=== PATIENT | female | born 1940 | race American Indian/Alaskan Native ===

== ENCOUNTER 2017-04-02 13:17 | Inpatient (IN) | payer MEDICARE ==
--- NOTE | 2017-04-02 14:42 | Emergency Department Report ---
- General Chief complaint: Weakness Stated complaint: WEAKNESS Time Seen by Provider: 04/02/17 14:42 Source: EMS Mode of arrival: Stretcher Limitations: Physical Limitation - History of Present Illness Initial comments: 77 YO FEMAL;E C/O OF WEAKNESS, NECK AND HEAD PAIN , TOOTH ACHE . HER PAIN IS NOT ACUTE BUT DAUGHTER SAYS SHE HAD INCREASED NECK PAIN AST NIGHT. RECENTLY SHE WAS ADMITTED HER FOR PNEUMONIA. MD Complaint: lack of energy -: week(s) (MANY ) Location: neck Severity scale (0 -10): 3 Quality: aching Consistency: constant Improves with: none Worsens with: none Associated Symptoms: other (TOOTHACHE) - Related Data Home Medications Medication Instructions Recorded Confirmed Last Taken Amlodipine Besylate [Norvasc] 10 mg PO QDAY 03/19/17 03/19/17 Unknown Citalopram [Celexa] 20 mg PO QAM 03/19/17 03/19/[address] [Depakote Dr] 500 mg PO BID MDD YOBANI 03/19/17 03/19/17 Unknown Gabapentin [Neurontin] 1 - 2 cap PO QHS PRN 03/19/17 03/19/17 Unknown Memantine [Namenda] 10 mg PO BID 03/19/17 03/19/17 Unknown Metformin HCl [Glucophage] 500 mg PO BID 03/19/17 03/19/17 Unknown Metoprolol Tartrate 50 mg PO BID 03/19/17 03/19/17 Unknown Quetiapine Fumarate [Seroquel] 400 mg PO QHS 03/19/17 03/19/17 Unknown glipiZIDE XL [Glucotrol Xl] 10 mg PO QDAY 03/19/17 03/19/17 Unknown traMADol [Ultram 50 MG tab] 50 mg PO BID 03/19/17 03/19/17 Unknown Previous Rx's Medication Instructions Recorded Last Taken Type Levofloxacin [Levaquin TAB] 250 mg PO DAILY #5 tablet 03/22/17 Unknown Rx Allergies Allergy/AdvReac Type Severity Reaction Status Date / Time Penicillins Allergy Unknown Unknown Verified 03/19/17 11:14 Sulfa (Sulfonamide Allergy Unknown Verified 03/19/17 11:15 Antibiotics) ED Review of Systems ROS: Stated complaint: WEAKNESS Other details as noted in HPI Constitutional: denies: chills, fever Eyes: denies: eye pain, eye discharge, vision change ENT: dental pain. denies: ear pain, throat pain Respiratory: denies: cough, shortness of breath, wheezing Cardiovascular: denies: chest pain, palpitations Endocrine: no symptoms reported Gastrointestinal: denies: abdominal pain, nausea, diarrhea Genitourinary: denies: urgency, dysuria, discharge Musculoskeletal: arthralgia (C-SPINE). denies: back pain, joint swelling Skin: denies: rash, lesions Neurological: denies: headache, weakness, paresthesias Psychiatric: denies: anxiety, depression Hematological/Lymphatic: denies: easy bleeding, easy bruising ED Past Medical Hx - Past Medical History Previous Medical History?: Yes Hx Hypertension: Yes Hx Diabetes: Yes Hx Arthritis: Yes Hx Psychiatric Treatment: Yes Hx Dementia: Yes Additional medical history: anxiety. manic depression,PNEUMONIA - Surgical History Additional Surgical History: hysterectomy - Social History Smoking Status: Unknown if ever smoked - Medications Home Medications: Home Medications Medication Instructions Recorded Confirmed Last Taken Type Amlodipine Besylate [Norvasc] 10 mg PO QDAY 03/19/17 03/19/17 Unknown History Citalopram [Celexa] 20 mg PO QAM 03/19/17 03/19/[address] [Antonio Crespo] 500 mg PO BID MDD YOBANI 03/19/17 03/19/17 Unknown History Gabapentin [Neurontin] 1 - 2 cap PO QHS PRN 03/19/17 03/19/17 Unknown History Memantine [Namenda] 10 mg PO BID 03/19/17 03/19/17 Unknown History Metformin HCl [Glucophage] 500 mg PO BID 03/19/17 03/19/17 Unknown History Metoprolol Tartrate 50 mg PO BID 03/19/17 03/19/17 Unknown History Quetiapine Fumarate [Seroquel] 400 mg PO QHS 03/19/17 03/19/17 Unknown History glipiZIDE XL [Glucotrol Xl] 10 mg PO QDAY 03/19/17 03/19/17 Unknown History traMADol [Ultram 50 MG tab] 50 mg PO BID 03/19/17 03/19/17 Unknown History Levofloxacin [Levaquin TAB] 250 mg PO DAILY #5 tablet 03/22/17 Unknown Rx ED Physical Exam - General Limitations: Physical Limitation General appearance: alert, in no apparent distress - Head Head exam: Present: atraumatic, normocephalic - Eye Eye exam: Present: normal appearance, EOMI. Absent: scleral icterus - ENT ENT exam: Present: mucous membranes moist - Neck Neck exam: Present: normal inspection, tenderness (MIDLINE C-SPINE ) - Respiratory Respiratory exam: Present: normal lung sounds bilaterally. Absent: respiratory distress - Cardiovascular Cardiovascular Exam: Present: regular rate, normal rhythm. Absent: systolic murmur, diastolic murmur, rubs, gallop - GI/Abdominal GI/Abdominal exam: Present: soft, normal bowel sounds - Rectal Rectal exam: Present: deferred - Extremities Exam Extremities exam: Present: normal inspection - Back Exam Back exam: Present: normal inspection, full ROM - Neurological Exam Neurological exam: Present: alert, oriented X3, CN II-XII intact - Psychiatric Psychiatric exam: Present: normal affect, normal mood - Skin Skin exam: Present: warm, dry, intact, normal color. Absent: rash ED Course Vital Signs 04/02/17 04/02/17 04/02/17 13:51 15:43 16:00 Temperature 97.6 F Pulse Rate 132 H 129 H 131 H Respiratory 25 H 20 24 Rate Blood Pressure 149/66 163/76 163/76 Blood Pressure 149/66 [Right] O2 Sat by Pulse 96 82 L Oximetry 04/02/17 04/02/17 04/02/17 17:00 18:00 19:43 Temperature Pulse Rate 128 H 123 H Respiratory 22 24 Rate Blood Pressure 170/75 173/71 176/85 Blood Pressure [Right] O2 Sat by Pulse 90 Oximetry - Reevaluation(s) Reevaluation #1: 04/02/17 18:48 PT CONTINUES TO BE TACHYCARDIA. WAITING FOR REPORT OF CHEST CT AND VQ SCAN 04/02/17 19:52 DR NEVILLE WILL CHEST FOT THE CT AND V/Q SCAN RESULTS AND TREAT ACCORDINGLY ED Medical Decision Making - Lab Data Result diagrams: 04/02/17 14:34 04/02/17 14:34 - EKG Data -: EKG Interpreted by Me EKG shows normal: axis Rate: tachycardia - Radiology Data Radiology results: report reviewed, image reviewed (CXR:BIBASILAR ATELECTASIS) Critical care attestation.: If time is entered above; I have spent that time in minutes in the direct care of this critically ill patient, excluding procedure time. ED Disposition Clinical Impression: Weakness, Tachycardia, Neck pain Disposition: DC-01 TO HOME OR SELFCARE Is pt being admited?: Yes Does the pt Need Aspirin: No Condition: Stable Referrals: PRIMARY CARE, [Primary Care Provider] - 3-5 Days Time of Disposition: 19:50 (CASE REVIEWED WITH DR NEVILLE AND HE WILL ADMIT THE PT TO THE HOSPITAL)
[2017-04-02 15:23] LABS: Basophils % (Auto) 0.3 % (0.0-1.8); Hemoglobin 12.4 gm/dl (10.1-14.3); Mean Corpuscular HGB Conc 31 % (30-34); Mean Corpuscular Hemoglobin 29 pg (28-32); Mean Corpuscular Volume 94 fl (79-97); Platelet Count 273 K/mm3 (140-440); Red Blood Count 4.24 M/mm3 (3.65-5.03); Red Cell Distribution Width 13.5 % (13.2-15.2); White Blood Count 14.1 K/mm3 (4.5-11.0)
[2017-04-02 15:38] LABS: Alanine Aminotransferase 28 units/L (7-56); Albumin 3.9 g/dL (3.9-5); Albumin/Globulin Ratio 1.1 %; Alkaline Phosphatase 98 units/L (35-129); Anion Gap 23 mmol/L; BUN/Creatinine Ratio 19; Blood Urea Nitrogen 19 mg/dL (7-17); Calcium 9.3 mg/dL (8.4-10.2); Carbon Dioxide 24 mmol/L (22-30); Chloride 95.5 mmol/L (98-107); Glucose 260 mg/dL (65-100); Lactate Dehydrogenase 218 units/L (91-180); Potassium 4.1 mmol/L (3.6-5.0); Sodium 138 mmol/L (137-145); Total Protein 7.4 g/dL (6.3-8.2)
[2017-04-02 15:40] LABS: Creatine Kinase MB 19.5 ng/mL (0.0-4.0)
--- NOTE | 2017-04-02 15:40 | XRay Report ---
AP CHEST :04/02/17 13:17:00 CLINICAL: Tachycardia. COMPARISON:03/19/17 FINDINGS: Normal heart and pulmonary vasculature. Mild bibasal subsegmental atelectasis. No airspace disease or pleural effusion. The bones and soft tissues are normal. IMPRESSION: Mild bibasal subsegmental atelectasis. No CHF or pneumonia.
[2017-04-02 15:41] LABS: Creatine Kinase 519 units/L (30-135)
[2017-04-02] MEDS ORDERED: NACL 0.9% 500 ML 500 ML IV ONE (16:24)
[2017-04-02 16:34] LABS: Bacteria,Urine 1+ /HPF (Negative); Bilirubin,Urine NEG (Negative); Blood,Urine NEG (Negative); Ketones,Urine NEG (Negative); Leukocyte Esterase,Urine NEG (Negative); Mucus,Urine FEW /HPF; Nitrite,Urine NEG (Negative); Protein,Urine <15 mg/dL mg/dL (Negative); Urobilinogen,Urine < 2.0 mg/dL (<2.0)
[2017-04-02] MEDS ORDERED: NACL ONE (16:48)
--- NOTE | 2017-04-02 18:16 | Cat Scan Report ---
FINAL REPORT EXAM: CT HEAD/BRAIN WO CON HISTORY: weakness TECHNIQUE: Standard unenhanced CT of the head at 5.0 millimeter axial increments. PRIORS: None. FINDINGS: The ventricular system is normal in size and configuration. There is moderate cerebral and cerebellar atrophy. Bilateral basal ganglia calcification is likely age related. There is no evidence for mass lesion, mass effect, midline shift, acute intracranial hemorrhage, or acute ischemia/ infarction. No evidence for acute skull fracture is seen. No abnormality in the overlying scalp soft tissues is seen. Visualized paranasal sinuses are clear. IMPRESSION: No acute intracranial process noted.
[2017-04-02 18:21] LABS: Creatine Kinase MB 16.6 ng/mL (0.0-4.0)
[2017-04-02 18:22] LABS: Creatine Kinase 509 units/L (30-135)
--- NOTE | 2017-04-02 18:23 | Cat Scan Report ---
FINAL REPORT EXAM: CT CERVICAL SPINE WO CON HISTORY: ,neck pain . TECHNIQUE: Standard CT cervical spine obtained at 2.5 millimeter axial increments. Coronal and sagittal reconstruction was also performed. PRIORS: None. FINDINGS: The vertebral bodies are intact. There is no evidence for acute fracture. There is no evidence for paravertebral soft tissue swelling. Alignment is maintained. There is moderate to severe disc space narrowing at C5 through C7 with large spurs anteriorly and posteriorly. There are also spurs anteriorly and posteriorly at C3-C4. 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 IMPRESSION: No acute abnormality of the cervical spine. A moderate severe degenerative disc changes from C5 through C7. Congenital fusion of C2 and C3 is present.
--- NOTE | 2017-04-02 19:50 | Nuclear Medicine Report ---
FINAL REPORT EXAM: NM LUNG SCAN PERF/VENT HISTORY: elevated d-dimer TECHNIQUE: Profusion imaging of the lungs was performed in multiple planar projections. Ventilation imaging was performed in the posterior projection for initial, equilibrium, and washout phases. Correlation with a chest x-ray dated 04/02/2017 was made. DOSE: 15 millicuries Xe-133 gas; 5.0 millicuries 99m Tc MAA given IV. PRIORS: None. FINDINGS: The tracer distribution on perfusion imaging is homogeneous throughout. No unmatched segmental or subsegmental perfusion defects are identified to suggest the presence of pulmonary embolism. The ventilation study is also homogeneous and within normal limits. There is normal equilibrium and washout with no evidence for air trapping. IMPRESSION: Normal V/Q scan
--- NOTE | 2017-04-02 20:30 | History and Physical Report ---
History of Present Illness Chief complaint: She is weak and confused, she's been falling, and I dont know what to do History of present illness: 77 YO Female with HTN, DM, OA, Dementia, Anxiety, Depression presents to ED for evaluation. Pt is confused and unable to provide history. Pt daughter is as bedside and provides history. Pt daughter states that her mother has been living with her since March 13, 2017. Since that time she has experienced progressive confusion and weakness that has resulted in multiple falls. No reports of fever, chills, CP, Palpitations, NVD, Syncope, head trauma. Pt has decreased interaction with family, as well as decreased oral intake over the past three weeks. Pt seen and evaluated in ED and found to be confused but is able to protect her airway. No external signs of trauma, or point tenderness to head and neck region on exam. CT of Head, Neck, and Chest conducted in ED did not reveal any acute fracture or pathology. D dimer was elevated, but VQ scan did not reveal PE. Pt daughter denies complaints of head/neck pain. Pt found to have evidence of sepsis and pneumonia. Past History Past Medical History: arthritis, diabetes, hypertension, other (Dementia, depression) Past Surgical History: hysterectomy Social history: , lives with family. denies: smoking, alcohol abuse, prescription drug abuse Family history: diabetes, hypertension Medications and Allergies Allergies Allergy/AdvReac Type Severity Reaction Status Date / Time Penicillins Allergy Unknown Unknown Verified 03/19/17 11:14 Sulfa (Sulfonamide Allergy Unknown Verified 03/19/17 11:15 Antibiotics) Home Medications Medication Instructions Recorded Confirmed Last Taken Type Amlodipine Besylate [Norvasc] 10 mg PO QDAY 03/19/17 03/19/17 Unknown History Citalopram [Celexa] 20 mg PO QAM 03/19/17 03/19/[address] [Antonio Crespo] 500 mg PO BID MDD YOBANI 03/19/17 03/19/17 Unknown History Gabapentin [Neurontin] 1 - 2 cap PO QHS PRN 03/19/17 03/19/17 Unknown History Memantine [Namenda] 10 mg PO BID 03/19/17 03/19/17 Unknown History Metformin HCl [Glucophage] 500 mg PO BID 03/19/17 03/19/17 Unknown History Metoprolol Tartrate 50 mg PO BID 03/19/17 03/19/17 Unknown History Quetiapine Fumarate [Seroquel] 400 mg PO QHS 03/19/17 03/19/17 Unknown History glipiZIDE XL [Glucotrol Xl] 10 mg PO QDAY 03/19/17 03/19/17 Unknown History traMADol [Ultram 50 MG tab] 50 mg PO BID 03/19/17 03/19/17 Unknown History Levofloxacin [Levaquin TAB] 250 mg PO DAILY #5 tablet 03/22/17 Unknown Rx Review of Systems ROS unobtainable: due to mental status Exam - Constitutional Vitals: Temp Pulse Resp BP Pulse Ox 97.6 F 123 H 24 176/85 90 04/02/17 13:51 04/02/17 19:43 04/02/17 19:43 04/02/17 19:43 04/02/17 17:00 General appearance: Present: mild distress - EENT Eyes: Present: PERRL ENT: hearing intact, clear oral mucosa - Neck Neck: Present: supple, normal ROM - Respiratory Respiratory effort: normal Respiratory: bilateral: diminished - Cardiovascular Rhythm: other (tachycardia) Heart Sounds: Present: S1 & S2. Absent: rub, click - Extremities Extremities: pulses symmetrical, No edema Peripheral Pulses: abnormal (capillary refill: 4 seconds) - Abdominal General gastrointestinal: Present: soft, non-tender, non-distended, normal bowel sounds Female genitourinary: Present: normal - Integumentary Integumentary: Present: clear, dry, decreased turgor - Musculoskeletal Musculoskeletal: generalized weakness - Psychiatric Psychiatric: no intact judgment & insight, no memory intact - Neurologic Neurologic: CNII-XII intact, no gait normal Results - Labs CBC & Chem 7: 04/02/17 14:34 04/02/17 14:34 Labs: Abnormal lab results 04/02/17 04/02/17 04/02/17 Range/Units 14:34 14:34 15:14 WBC 14.1 H (4.5-11.0) K/mm3 Lymph % (Auto) 9.2 L (13.4-35.0) % Levy # 1.0 H (0.0-0.8) K/mm3 Seg Neutrophils % 83.5 H (40.0-70.0) % Seg Neutrophils # 11.8 H (1.8-7.7) K/mm3 D-Dimer (0-234) ng/mlDDU Chloride 95.5 L (98-107) mmol/L BUN 19 H (7-17) mg/dL Glucose 260 H (65-100) mg/dL Lactate Dehydrogenase 218 H (91-180) units/L Total Creatine Kinase 519 H (30-135) units/L CK-MB (CK-2) 19.5 H (0.0-4.0) ng/mL NT-Pro-B Natriuret Pep 1438 H (0-900) pg/mL 04/02/17 04/02/17 Range/Units 15:14 17:49 WBC (4.5-11.0) K/mm3 Lymph % (Auto) (13.4-35.0) % Levy # (0.0-0.8) K/mm3 Seg Neutrophils % (40.0-70.0) % Seg Neutrophils # (1.8-7.7) K/mm3 D-Dimer 1589.41 H (0-234) ng/mlDDU Chloride (98-107) mmol/L BUN (7-17) mg/dL Glucose (65-100) mg/dL Lactate Dehydrogenase (91-180) units/L Total Creatine Kinase 509 H (30-135) units/L CK-MB (CK-2) 16.6 H (0.0-4.0) ng/mL NT-Pro-B Natriuret Pep (0-900) pg/mL Assessment and Plan - Patient Problems (1) Sepsis Current Visit: Yes Status: Acute Plan to address problem: Sepsis Protocol: IV abx, IVF, serial lactic acid level, monitor uop q shift, blood cultures, repeat cbc, urinalysis, (2) Pneumonia Current Visit: Yes Status: Acute Qualifiers: Laterality: bilateral Lung location: lower lobe of lung Plan to address problem: IV abx, IVF, blood cultures, supplemental oxygen, aspiration precautions, incentive spirometry, NIPPV as clinically indicated, (3) Encephalopathy Current Visit: Yes Status: Acute Plan to address problem: Toxic Encephalopathy: Secondary to pneumonia/sepsis. Treat pneumonia, neuro checks, fall precautions, (4) Diabetes Current Visit: Yes Status: Acute Plan to address problem: ADA diet, diet with assistance, aspiration precautions, diet when alert and awake only, (5) HTN (hypertension) Current Visit: Yes Status: Acute Plan to address problem: monitor bp q shift, (6) DVT prophylaxis Current Visit: Yes Status: Acute
[2017-04-02] MEDS ORDERED: PROVENTIL IH PRN (20:35)
[2017-04-02] MEDS ORDERED: ZOFRAN IV PRN (20:35)
[2017-04-02] MEDS ORDERED: NACL 0.9% 1000 ML IV ONE (20:38)
[2017-04-02 20:43] LABS: INR 1.04 (0.87-1.13)
[2017-04-02 20:44] LABS: Partial Thromboplastin Time 33.7 Sec. (24.2-36.6)
--- NOTE | 2017-04-02 20:44 | Cat Scan Report ---
FINAL REPORT EXAM: CT CHEST WO CON HISTORY: Elevated D-dimer TECHNIQUE: Standard unenhanced CT of the chest at 2.5 mm axial increments. Coronal and sagittal reconstruction was also obtained. PRIORS: None. FINDINGS: Bibasilar linear atelectasis or fibrosis is present. Otherwise, the lung parenchyma are expanded and clear with no evidence for parenchymal nodules, infiltrates, vascular congestion, pleural effusion, or pneumothorax. Heavily calcified 1 cm granuloma in the left apex is seen. Several calcified granulomatous lymph node in the mediastinum and left hilum are noted. There is no evidence for mediastinal, hilar, or axillary adenopathy. The esophagus is collapsed. The trachea is midline. Cardiovascular structures are within normal limits. Cardiac size and aorta are normal. Images through the lung bases include upper abdomen which show no abnormality of the visualized abdominal viscera. Bony structures show no focal abnormalities. No evidence for bony fracture is seen. IMPRESSION: 1. bibasilar atelectasis versus fibrosis. 2. Otherwise, no acute abnormality identified in the chest. 3. granulomatous changes in the left upper lobe and mediastinum.
[2017-04-02] MEDS ORDERED: NON-FORMULARY (Quetiapine Fumarate [Seroquel] 400 MG) PO SCH (22:00)
[2017-04-02] MEDS ORDERED: PEPCID IV SCH (22:00)
[2017-04-02] MEDS: NAMENDA PO SCH (22:11)
[2017-04-02] MEDS: LOPRESSOR PO SCH (22:11)
[2017-04-02] MEDS: ULTRAM PO SCH (22:12)
[2017-04-03] MEDS ORDERED: D50W (25GM) Syringe IV PRN (06:46)
[2017-04-03] MEDS ORDERED: D50W (25GM) Vial IV PRN (06:49)
[2017-04-03] MEDS: NOVOLOG SUB-Q SCH ×4 (07:45→23:21)
[2017-04-03] MEDS: TYLENOL PO PRN (09:35)
[2017-04-03] MEDS: celeXA PO SCH (09:36)
[2017-04-03] MEDS: NAMENDA PO SCH ×2 (09:36→23:19)
[2017-04-03] MEDS: LOPRESSOR PO SCH ×2 (09:40→23:26)
[2017-04-03] MEDS: NORVASC PO SCH (09:40)
[2017-04-03] MEDS: ULTRAM PO SCH ×2 (09:43→23:20)
[2017-04-03] MEDS ORDERED: LEVAQUIN 750MG/150ML 750 MG/150 ML BAG IV SCH (10:00)
[2017-04-03] MEDS: PEPCID PO SCH ×2 (11:49→23:19)
--- NOTE | 2017-04-03 13:40 | Progress Note ---
Assessment and Plan Assessment and plan: 77-year-old -Polish female with past medical history significant for hypertension, dementia, depression, diabetes brought to emergency department doctor for complaints of frequent falls, confusion Sepsis secondary to bilateral pneumonia - Patient is being managed according to the sepsis protocol Dementia with confusion - Supportive care -Treat the underlying cause Debility - Supportive care Frequent falls - PT consulted Hypertension - Continue home medications Diabetes mellitus type 2 - Sliding scale insulin, Accu-Chek DVT prophylaxis - Lovenox Disposition - Continue inpatient care Patient placement, plan discussed as a case investigator. History Interval history: Patient was seen and evaluated this morning, patient is sleepy, no new complaints Hospitalist Physical - Physical exam Narrative exam: Not in cardiopulmonary distress. The patient appeared well nourished and normally developed. Vital signs as documented. Head exam is unremarkable. No scleral icterus . Neck is without jugular venous distension, thyromegaly, or carotid bruits. Lungs are clear to auscultation. Cardiac exam reveals regular rate and Rhythm. First and second heart sounds normal. No murmurs, rubs or gallops. Abdominal exam reveals normal bowel sounds, no masses, no organomegaly and no aortic enlargement. Extremities are nonedematous and both femoral and pedal pulses are normal. 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 - Constitutional Vitals: Temp Pulse Resp BP Pulse Ox 99 F 86 20 131/91 100 04/03/17 08:15 04/03/17 09:40 04/03/17 08:15 04/03/17 09:40 04/03/17 11:01 General appearance: Present: mild distress Results - Labs CBC & Chem 7: 04/02/17 14:34 04/02/17 14:34 Labs: Laboratory Last Values WBC 14.1 K/mm3 (4.5-11.0) H 04/02/17 14:34 RBC 4.24 M/mm3 (3.65-5.03) 04/02/17 14:34 Hgb 12.4 gm/dl (10.1-14.3) 04/02/17 14:34 Hct 40.0 % (30.3-42.9) 04/02/17 14:34 MCV 94 fl (79-97) 04/02/17 14:34 MCH 29 pg (28-32) 04/02/17 14:34 MCHC 31 % (30-34) 04/02/17 14:34 RDW 13.5 % (13.2-15.2) 04/02/17 14:34 Plt Count 273 K/mm3 (140-440) 04/02/17 14:34 Lymph % (Auto) 9.2 % (13.4-35.0) L 04/02/17 14:34 [place] % (Auto) 7.0 % (0.0-7.3) 04/02/17 14:34 Eos % (Auto) 0.0 % (0.0-4.3) 04/02/17 14:34 Baso % (Auto) 0.3 % (0.0-1.8) 04/02/17 14:34 Lymph # 1.3 K/mm3 (1.2-5.4) 04/02/17 14:34 [place] # 1.0 K/mm3 (0.0-0.8) H 04/02/17 14:34 Eos # 0.0 K/mm3 (0.0-0.4) 04/02/17 14:34 Baso # 0.0 K/mm3 (0.0-0.1) 04/02/17 14:34 Seg Neutrophils % 83.5 % (40.0-70.0) H 04/02/17 14:34 Seg Neutrophils # 11.8 K/mm3 (1.8-7.7) H 04/02/17 14:34 PT 14.1 Sec. (12.2-14.9) 04/02/17 19:58 INR 1.04 (0.87-1.13) 04/02/17 19:58 APTT 33.7 Sec. (24.2-36.6) 04/02/17 19:58 D-Dimer 1589.41 ng/mlDDU (0-234) H 04/02/17 15:14 Sodium 138 mmol/L (137-145) 04/02/17 14:34 Potassium 4.1 mmol/L (3.6-5.0) 04/02/17 14:34 Chloride 95.5 mmol/L (98-107) L 04/02/17 14:34 Carbon Dioxide 24 mmol/L (22-30) 04/02/17 14:34 Anion Gap 23 mmol/L 04/02/17 14:34 BUN 19 mg/dL (7-17) H 04/02/17 14:34 Creatinine 1.0 mg/dL (0.7-1.2) 04/02/17 14:34 Estimated GFR > 60 ml/min 04/02/17 14:34 BUN/Creatinine Ratio 19 % 04/02/17 14:34 Glucose 260 mg/dL (65-100) H 04/02/17 14:34 POC Glucose 151 (70-105) H 04/03/17 08:13 Lactic Acid 1.50 mmol/L (0.7-2.0) 04/03/17 02:57 Calcium 9.3 mg/dL (8.4-10.2) 04/02/17 14:34 Total Bilirubin 0.40 mg/dL (0.1-1.2) 04/02/17 14:34 AST 22 units/L (5-40) 04/02/17 14:34 ALT 28 units/L (7-56) 04/02/17 14:34 Alkaline Phosphatase 98 units/L (35-129) 04/02/17 14:34 Lactate Dehydrogenase 218 units/L (91-180) H 04/02/17 14:34 Total Creatine Kinase 509 units/L (30-135) H 04/02/17 17:49 CK-MB (CK-2) 16.6 ng/mL (0.0-4.0) H 04/02/17 17:49 CK-MB (CK-2) Rel Index 3.2 (0-4) 04/02/17 17:49 Troponin T < 0.010 ng/mL (0.00-0.029) 04/02/17 17:49 NT-Pro-B Natriuret Pep 1438 pg/mL (0-900) H 04/02/17 15:14 Total Protein 7.4 g/dL (6.3-8.2) 04/02/17 14:34 Albumin 3.9 g/dL (3.9-5) 04/02/17 14:34 Albumin/Globulin Ratio 1.1 % 04/02/17 14:34 Urine Color Yellow (Yellow) 04/02/17 16:20 Urine Turbidity Clear (Clear) 04/02/17 16:20 Urine pH 6.0 (5.0-7.0) 04/02/17 16:20 Ur Specific [place] 1.020 (1.003-1.030) 04/02/17 16:20 Urine Protein <15 mg/dl mg/dL (Negative) 04/02/17 16:20 Urine Glucose (UA) >=500 mg/dL (Negative) 04/02/17 16:20 Urine Ketones Neg mg/dL (Negative) 04/02/17 16:20 Urine Blood Neg (Negative) 04/02/17 16:20 Urine Nitrite Neg (Negative) 04/02/17 16:20 Urine Bilirubin Neg (Negative) 04/02/17 16:20 Urine Urobilinogen < 2.0 mg/dL (<2.0) 04/02/17 16:20 Ur Leukocyte Esterase Neg (Negative) 04/02/17 16:20 Urine WBC (Auto) 1.0 /HPF (0.0-6.0) 04/02/17 16:20 Urine RBC (Auto) 1.0 /HPF (0.0-6.0) 04/02/17 16:20 Urine Bacteria (Auto) 1+ /HPF (Negative) 04/02/17 16:20 Urine Mucus Few /HPF 04/02/17 16:20
[2017-04-03] MEDS: LOVENOX SUB-Q SCH (23:33)
[2017-04-04 04:56] LABS: Basophils % (Auto) 0.7 % (0.0-1.8); Eosinophils % (Auto) 0.1 % (0.0-4.3); Hematocrit 30.7 % (30.3-42.9); Hemoglobin 10.1 gm/dl (10.1-14.3); Mean Corpuscular HGB Conc 33 % (30-34); Mean Corpuscular Hemoglobin 31 pg (28-32); Mean Corpuscular Volume 93 fl (79-97); Platelet Count 209 K/mm3 (140-440); Red Blood Count 3.28 M/mm3 (3.65-5.03); Red Cell Distribution Width 13.3 % (13.2-15.2); White Blood Count 8.7 K/mm3 (4.5-11.0)
[2017-04-04 05:05] LABS: Calcium 8.7 mg/dL (8.4-10.2); Chloride 104.8 mmol/L (98-107); Potassium 4.1 mmol/L (3.6-5.0)
[2017-04-04] MEDS: NOVOLOG SUB-Q SCH ×4 (10:40→22:33)
[2017-04-04] MEDS: ULTRAM PO SCH ×2 (10:41→21:59)
[2017-04-04] MEDS: PEPCID PO SCH ×2 (10:41→22:00)
[2017-04-04] MEDS: celeXA PO SCH (10:42)
[2017-04-04] MEDS: NAMENDA PO SCH ×2 (10:42→22:01)
[2017-04-04] MEDS: LEVAQUIN PO SCH (10:42)
[2017-04-04] MEDS: NORVASC PO SCH (10:43)
[2017-04-04] MEDS: LOPRESSOR PO SCH ×2 (10:43→22:00)
--- NOTE | 2017-04-04 13:19 | Progress Note ---
Assessment and Plan Assessment and plan: 77-year-old -Martiniquais female with past medical history significant for hypertension, dementia, depression, diabetes brought to emergency department doctor for complaints of frequent falls, confusion Sepsis secondary to bilateral pneumonia - Patient is being managed according to the sepsis protocol Dementia with confusion - Supportive care -Treat the underlying cause Debility - Supportive care Frequent falls - PT consulted Hypertension - Continue home medications Diabetes mellitus type 2 - Sliding scale insulin, Accu-Chek DVT prophylaxis - Lovenox Disposition - Continue inpatient care Patient needed subacute rehabilitation placement. History Interval history: Patient was seen and evaluated this morning, no new complaints Hospitalist Physical - Physical exam Narrative exam: Not in cardiopulmonary distress. The patient appeared well nourished and normally developed. Vital signs as documented. Head exam is unremarkable. No scleral icterus . Neck is without jugular venous distension, thyromegaly, or carotid bruits. Lungs are clear to auscultation. Cardiac exam reveals regular rate and Rhythm. First and second heart sounds normal. No murmurs, rubs or gallops. Abdominal exam reveals normal bowel sounds, no masses, no organomegaly and no aortic enlargement. Extremities are nonedematous and both femoral and pedal pulses are normal. 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 - Constitutional Vitals: Temp Pulse Resp BP Pulse Ox 98.6 F 100 H 20 123/62 100 04/04/17 07:33 04/04/17 10:43 04/04/17 07:33 04/04/17 10:43 04/04/17 07:33 General appearance: Present: mild distress Results - Labs CBC & Chem 7: 04/04/17 04:12 04/04/17 04:12 Labs: Laboratory Last Values WBC 8.7 K/mm3 (4.5-11.0) 04/04/17 04:12 RBC 3.28 M/mm3 (3.65-5.03) L 04/04/17 04:12 Hgb 10.1 gm/dl (10.1-14.3) 04/04/17 04:12 Hct 30.7 % (30.3-42.9) D 04/04/17 04:12 MCV 93 fl (79-97) 04/04/17 04:12 MCH 31 pg (28-32) 04/04/17 04:12 MCHC 33 % (30-34) 04/04/17 04:12 RDW 13.3 % (13.2-15.2) 04/04/17 04:12 Plt Count 209 K/mm3 (140-440) 04/04/17 04:12 Lymph % (Auto) 16.1 % (13.4-35.0) 04/04/17 04:12 [place] % (Auto) 6.8 % (0.0-7.3) 04/04/17 04:12 Eos % (Auto) 0.1 % (0.0-4.3) 04/04/17 04:12 Baso % (Auto) 0.7 % (0.0-1.8) 04/04/17 04:12 Lymph # 1.4 K/mm3 (1.2-5.4) 04/04/17 04:12 Hart # 0.6 K/mm3 (0.0-0.8) 04/04/17 04:12 Eos # 0.0 K/mm3 (0.0-0.4) 04/04/17 04:12 Baso # 0.1 K/mm3 (0.0-0.1) 04/04/17 04:12 Seg Neutrophils % 76.3 % (40.0-70.0) H 04/04/17 04:12 Seg Neutrophils # 6.6 K/mm3 (1.8-7.7) 04/04/17 04:12 PT 14.1 Sec. (12.2-14.9) 04/02/17 19:58 INR 1.04 (0.87-1.13) 04/02/17 19:58 APTT 33.7 Sec. (24.2-36.6) 04/02/17 19:58 D-Dimer 1589.41 ng/mlDDU (0-234) H 04/02/17 15:14 Sodium 141 mmol/L (137-145) 04/04/17 04:12 Potassium 4.1 mmol/L (3.6-5.0) 04/04/17 04:12 Chloride 104.8 mmol/L (98-107) 04/04/17 04:12 Carbon Dioxide 23 mmol/L (22-30) 04/04/17 04:12 Anion Gap 17 mmol/L 04/04/17 04:12 BUN 26 mg/dL (7-17) H 11/25/17 04:12 Creatinine 1.2 mg/dL (0.7-1.2) 04/04/17 04:12 Estimated GFR 53 ml/min 04/04/17 04:12 BUN/Creatinine Ratio 22 % 04/04/17 04:12 Glucose 181 mg/dL (65-100) H 04/04/17 04:12 POC Glucose 211 (70-105) H 04/04/17 11:42 Lactic Acid 1.50 mmol/L (0.7-2.0) 04/03/17 02:57 Calcium 8.7 mg/dL (8.4-10.2) 04/04/17 04:12 Total Bilirubin 0.40 mg/dL (0.1-1.2) 04/02/17 14:34 AST 22 units/L (5-40) 04/02/17 14:34 ALT 28 units/L (7-56) 04/02/17 14:34 Alkaline Phosphatase 98 units/L (35-129) 04/02/17 14:34 Lactate Dehydrogenase 218 units/L (91-180) H 04/02/17 14:34 Total Creatine Kinase 509 units/L (30-135) H 04/02/17 17:49 CK-MB (CK-2) 16.6 ng/mL (0.0-4.0) H 04/02/17 17:49 CK-MB (CK-2) Rel Index 3.2 (0-4) 04/02/17 17:49 Troponin T < 0.010 ng/mL (0.00-0.029) 04/02/17 17:49 NT-Pro-B Natriuret Pep 1438 pg/mL (0-900) H 04/02/17 15:14 Total Protein 7.4 g/dL (6.3-8.2) 04/02/17 14:34 Albumin 3.9 g/dL (3.9-5) 04/02/17 14:34 Albumin/Globulin Ratio 1.1 % 04/02/17 14:34 Urine Color Yellow (Yellow) 04/02/17 16:20 Urine Turbidity Clear (Clear) 04/02/17 16:20 Urine pH 6.0 (5.0-7.0) 04/02/17 16:20 Ur Specific [place] 1.020 (1.003-1.030) 04/02/17 16:20 Urine Protein <15 mg/dl mg/dL (Negative) 04/02/17 16:20 Urine Glucose (UA) >=500 mg/dL (Negative) 04/02/17 16:20 Urine Ketones Neg mg/dL (Negative) 04/02/17 16:20 Urine Blood Neg (Negative) 04/02/17 16:20 Urine Nitrite Neg (Negative) 04/02/17 16:20 Urine Bilirubin Neg (Negative) 04/02/17 16:20 Urine Urobilinogen < 2.0 mg/dL (<2.0) 04/02/17 16:20 Ur Leukocyte Esterase Neg (Negative) 04/02/17 16:20 Urine WBC (Auto) 1.0 /HPF (0.0-6.0) 04/02/17 16:20 Urine RBC (Auto) 1.0 /HPF (0.0-6.0) 04/02/17 16:20 Urine Bacteria (Auto) 1+ /HPF (Negative) 04/02/17 16:20 Urine Mucus Few /HPF 04/02/17 16:20
[2017-04-04] MEDS: LOVENOX SUB-Q SCH (22:00)
[2017-04-05] MEDS: NOVOLOG SUB-Q SCH ×4 (07:30→22:09)
[2017-04-05] MEDS: celeXA PO SCH (10:00)
[2017-04-05] MEDS: LOPRESSOR PO SCH ×2 (10:01→22:07)
[2017-04-05] MEDS: LEVAQUIN PO SCH (10:01)
[2017-04-05] MEDS: ULTRAM PO SCH ×2 (10:01→22:07)
[2017-04-05] MEDS: PEPCID PO SCH ×2 (10:01→22:07)
[2017-04-05] MEDS: NORVASC PO SCH (10:01)
[2017-04-05] MEDS: NAMENDA PO SCH ×2 (10:02→22:08)
--- NOTE | 2017-04-05 13:54 | Progress Note ---
Assessment and Plan Assessment and plan: 77-year-old -Malaysian female with past medical history significant for hypertension, dementia, depression, diabetes brought to emergency department doctor for complaints of frequent falls, confusion Sepsis secondary to bilateral pneumonia - Patient is being managed according to the sepsis protocol Dementia with confusion - Supportive care -Treat the underlying cause Debility - Supportive care Frequent falls - PT consulted Hypertension - Continue home medications Diabetes mellitus type 2 - Sliding scale insulin, Accu-Chek DVT prophylaxis - Lovenox Disposition - Continue inpatient care Patient needed subacute rehabilitation placement. History Interval history: Patient was seen and evaluated this morning, no new complaints, sitting on the chair. Hospitalist Physical - Physical exam Narrative exam: Not in cardiopulmonary distress. The patient appeared well nourished and normally developed. Vital signs as documented. Head exam is unremarkable. No scleral icterus . Neck is without jugular venous distension, thyromegaly, or carotid bruits. Lungs are clear to auscultation. Cardiac exam reveals regular rate and Rhythm. First and second heart sounds normal. No murmurs, rubs or gallops. Abdominal exam reveals normal bowel sounds, no masses, no organomegaly and no aortic enlargement. Extremities are nonedematous and both femoral and pedal pulses are normal. 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 - Constitutional Vitals: Temp Pulse Resp BP Pulse Ox 99.2 F 83 18 156/68 99 04/05/17 07:26 04/05/17 10:01 04/05/17 07:26 04/05/17 10:01 04/05/17 07:26 General appearance: Present: mild distress Results - Labs CBC & Chem 7: 04/04/17 04:12 04/04/17 04:12 Labs: Laboratory Last Values WBC 8.7 K/mm3 (4.5-11.0) 04/04/17 04:12 RBC 3.28 M/mm3 (3.65-5.03) L 04/04/17 04:12 Hgb 10.1 gm/dl (10.1-14.3) 04/04/17 04:12 Hct 30.7 % (30.3-42.9) D 04/04/17 04:12 MCV 93 fl (79-97) 04/04/17 04:12 MCH 31 pg (28-32) 04/04/17 04:12 MCHC 33 % (30-34) 04/04/17 04:12 RDW 13.3 % (13.2-15.2) 04/04/17 04:12 Plt Count 209 K/mm3 (140-440) 04/04/17 04:12 Lymph % (Auto) 16.1 % (13.4-35.0) 04/04/17 04:12 [place] % (Auto) 6.8 % (0.0-7.3) 04/04/17 04:12 Eos % (Auto) 0.1 % (0.0-4.3) 04/04/17 04:12 Baso % (Auto) 0.7 % (0.0-1.8) 04/04/17 04:12 Lymph # 1.4 K/mm3 (1.2-5.4) 04/04/17 04:12 [place] # 0.6 K/mm3 (0.0-0.8) 04/04/17 04:12 Eos # 0.0 K/mm3 (0.0-0.4) 04/04/17 04:12 Baso # 0.1 K/mm3 (0.0-0.1) 04/04/17 04:12 Seg Neutrophils % 76.3 % (40.0-70.0) H 04/04/17 04:12 Seg Neutrophils # 6.6 K/mm3 (1.8-7.7) 04/04/17 04:12 PT 14.1 Sec. (12.2-14.9) 04/02/17 19:58 INR 1.04 (0.87-1.13) 04/02/17 19:58 APTT 33.7 Sec. (24.2-36.6) 04/02/17 19:58 D-Dimer 1589.41 ng/mlDDU (0-234) H 04/02/17 15:14 Sodium 141 mmol/L (137-145) 04/04/17 04:12 Potassium 4.1 mmol/L (3.6-5.0) 04/04/17 04:12 Chloride 104.8 mmol/L (98-107) 04/04/17 04:12 Carbon Dioxide 23 mmol/L (22-30) 04/04/17 04:12 Anion Gap 17 mmol/L 04/04/17 04:12 BUN 26 mg/dL (7-17) H 04/04/17 04:12 Creatinine 1.2 mg/dL (0.7-1.2) 04/04/17 04:12 Estimated GFR 53 ml/min 04/04/17 04:12 BUN/Creatinine Ratio 22 % 04/04/17 04:12 Glucose 181 mg/dL (65-100) H 04/04/17 04:12 POC Glucose 222 (70-105) H 04/05/17 11:37 Lactic Acid 1.50 mmol/L (0.7-2.0) 04/03/17 02:57 Calcium 8.7 mg/dL (8.4-10.2) 04/04/17 04:12 Total Bilirubin 0.40 mg/dL (0.1-1.2) 04/02/17 14:34 AST 22 units/L (5-40) 04/02/17 14:34 ALT 28 units/L (7-56) 04/02/17 14:34 Alkaline Phosphatase 98 units/L (35-129) 04/02/17 14:34 Lactate Dehydrogenase 218 units/L (91-180) H 04/02/17 14:34 Total Creatine Kinase 509 units/L (30-135) H 04/02/17 17:49 CK-MB (CK-2) 16.6 ng/mL (0.0-4.0) H 04/02/17 17:49 CK-MB (CK-2) Rel Index 3.2 (0-4) 04/02/17 17:49 Troponin T < 0.010 ng/mL (0.00-0.029) 04/02/17 17:49 NT-Pro-B Natriuret Pep 1438 pg/mL (0-900) H 04/02/17 15:14 Total Protein 7.4 g/dL (6.3-8.2) 04/02/17 14:34 Albumin 3.9 g/dL (3.9-5) 04/02/17 14:34 Albumin/Globulin Ratio 1.1 % 04/02/17 14:34 Urine Color Yellow (Yellow) 04/02/17 16:20 Urine Turbidity Clear (Clear) 04/02/17 16:20 Urine pH 6.0 (5.0-7.0) 04/02/17 16:20 Ur Specific [place] 1.020 (1.003-1.030) 04/02/17 16:20 Urine Protein <15 mg/dl mg/dL (Negative) 04/02/17 16:20 Urine Glucose (UA) >=500 mg/dL (Negative) 04/02/17 16:20 Urine Ketones Neg mg/dL (Negative) 04/02/17 16:20 Urine Blood Neg (Negative) 04/02/17 16:20 Urine Nitrite Neg (Negative) 04/02/17 16:20 Urine Bilirubin Neg (Negative) 04/02/17 16:20 Urine Urobilinogen < 2.0 mg/dL (<2.0) 04/02/17 16:20 Ur Leukocyte Esterase Neg (Negative) 04/02/17 16:20 Urine WBC (Auto) 1.0 /HPF (0.0-6.0) 04/02/17 16:20 Urine RBC (Auto) 1.0 /HPF (0.0-6.0) 04/02/17 16:20 Urine Bacteria (Auto) 1+ /HPF (Negative) 04/02/17 16:20 Urine Mucus Few /HPF 04/02/17 16:20 Valproic Acid 60.9 ug/mL (50-100) 04/04/17 17:39
--- NOTE | 2017-04-05 17:02 | Consultation ---
History of Present Illness - Reason for Consult Consult date: 04/05/17 Reason for consult: psychiatric consult - Chief Complaint Chief complaint: "Did you come from up there?" - History of Present Psychiatric Illness Collateral from the family was obtained by the special agent secret service. Ms. Townsend is a 77 year old AA female admitted for sepsis/pneumonia. She recently has frequent falls and weakness. She was brought to the family for the holidays on 03-13-17. She resides with her oldest son. Her family members believes medications were not given to her correctly. Pt started to present with weakness and increased fatigue. She had 2 outburst 03-13 and 04-01 in which she was yelling, confused and had flight or ideas. She has a diagnosis of dementia. The family wants to have her medications evaluated to determine if she is taking too much Depakote. Her VPA level is 60.9. The family expressed concerns that since she is currently taking her medications as prescribed, she is having a side effect of the medication. Pt is being treated for an UTI. She is clearly confused. She is not oriented to location or time. She responded to her name. Unable to obtain additional information from the patient. Her daughter, Ms. Wood gave information about her history. She has a history of schizophrenia and dementia. Her memory has been declining over the years. Her daughter states she is usually very pleasant and at times will see and hear angels. Lately she has outbursts and this is since she has been sick with pneumonia. Her daughter is concerned that her brother is not aware of how behavior can be a sign of an acute problem. She states he told her it is just old age. She is concerned her brother will not understand the necessity of further treatment. Ms. Townsend is expected to go to a fpc temporarily. Her daughter is in agreement. Medications and Allergies Allergies Allergy/AdvReac Type Severity Reaction Status Date / Time Penicillins Allergy Unknown Unknown Verified 03/19/17 11:14 Sulfa (Sulfonamide Allergy Unknown Verified 03/19/17 11:15 Antibiotics) Home Medications Medication Instructions Recorded Confirmed Last Taken Type Amlodipine Besylate [Norvasc] 10 mg PO QDAY 03/19/17 04/03/17 04/02/17 10:00 History Citalopram [Celexa] 20 mg PO QPM 03/19/17 04/03/17 04/01/17 22:[address] [Depbarbarate Dr] 500 mg PO BID MDD YOBANI 03/19/17 04/03/17 04/02/17 10: 00 History Gabapentin [Neurontin] 1 - 2 cap PO QHS PRN 03/19/17 04/03/17 04/02/17 22:00 History Memantine [Namenda] 10 mg PO BID 03/19/17 04/03/17 04/02/17 10:00 History Metformin HCl [Glucophage] 500 mg PO BID 03/19/17 04/03/17 04/02/17 10:00 History Quetiapine Fumarate [Seroquel] 400 mg PO QHS 03/19/17 04/03/17 04/01/17 22:00 History glipiZIDE XL [Glucotrol Xl] 10 mg PO QDAY 03/19/17 04/03/17 04/02/17 10:00 History traMADol [Ultram 50 MG tab] 50 mg PO BID 03/19/17 04/03/17 04/02/17 10:00 History Active Meds: Active Medications Acetaminophen (Tylenol) 650 mg PO Q4H PRN PRN Reason: Pain MILD(1-3)/Fever >100.5/TAMEZ Last Admin: 04/03/17 09:35 Dose: 650 mg Albuterol (Proventil) 2.5 mg IH Q4HRT PRN PRN Reason: Shortness Of Breath Amlodipine Besylate (Norvasc) 10 mg PO QDAY [facility] Last Admin: 04/05/17 10:01 Dose: 10 mg Citalopram Hydrobromide (Celexa) 20 mg PO QAM [facility] Last Admin: 04/05/17 10:00 Dose: 20 mg Dextrose (D50w (25gm) Vial) 25 gm IV PRN PRN PRN Reason: HYPOGLYCEMIA Divalproex Sodium (Antonio Crespo) 250 mg PO BID [facility] Last Admin: 04/05/17 10:00 Dose: 250 mg Enoxaparin Sodium (Lovenox) 40 mg SUB-Q QDAY@2200 [facility] Last Admin: 04/04/17 22:00 Dose: 40 mg Famotidine (Pepcid) 10 mg PO BID [facility] Last Admin: 04/05/17 10:01 Dose: 10 mg Insulin Aspart (Novolog) 0 units SUB-Q ACHS [facility] PRN Reason: Protocol Last Admin: 04/05/17 12:44 Dose: 3 units Insulin Detemir (Levemir) 10 units SUB-Q QHS [facility] Levofloxacin (Levaquin) 750 mg PO Q24HR [facility] Last Admin: 04/05/17 10:01 Dose: 750 mg Memantine (Namenda) 10 mg PO BID [facility] Last Admin: 04/05/17 10:02 Dose: 10 mg Metoprolol Tartrate (Lopressor) 50 mg PO BID [facility] Last Admin: 04/05/17 10:01 Dose: 50 mg Ondansetron HCl (Zofran) 4 mg IV Q8H PRN PRN Reason: N/V unrelieved by Grecia Quetiapine Fumarate (Seroquel) 400 mg PO QHS [facility] Last Admin: 04/04/17 22:01 Dose: 400 mg Tramadol HCl (Ultram) 50 mg PO BID [facility] Last Admin: 04/05/17 10:01 Dose: 50 mg Past psychiatric history - Past Medical History Past Medical History: other (dementia, pneumonia) - past Psychiatric treatment and history psychiatric treatment history: Currently on depakote 250mg bid, which was decreased from 500mg bid 04/02/2017. VPA level was 60.9 04/04/2017. Currently on Seroquel 400mg hs Celexa 20mg daily and Namenda 10mg bid - Social History Social history: lives with family Mental Status Exam - Vital signs Last Vital Signs Temp 97.8 F 04/05/17 15:16 Pulse 83 04/05/17 10:01 Resp 18 04/05/17 15:16 BP 104/85 04/05/17 15:16 Pulse Ox 99 04/05/17 07:26 - Exam Orientation: person Mood: other (unable to obtain) Thought content: other (unable to obtain. ) Thought Process: Disoriented Perceptions: other (unable to obtain) Speech: normal rate and pattern Concentration: unable to pay attention Motor activity: restless Level of consciousness: alert, confused Memory: Recent Intact Sleep Symptoms: None (unable to obtain) Interaction: cooperative (she attempted to be cooperative) Results Result Diagrams: 04/04/17 04:12 04/04/17 04:12 Abnormal lab results 04/04/17 04/05/17 04/05/17 Range/Units 22:20 07:31 11:37 POC Glucose 214 H 121 H 222 H (70-105) 04/05/17 Range/Units 16:14 POC Glucose 123 H (70-105) All other labs normal. Assessment and Plan Assessment and plan: Impression: Dementia, unspecified. dementia with behavioral disturbance is possible, but it is more likely her recent behavior is related to encephalopathy give the acute onset. She was taking a decreased dose of depakote 2 days prior to the VPA draw. Toxicity prior is unknown. Recommendation: Continue with the decrease in depakote 250mg bid and monitor closely for signs of orin. Continue seroquel 400mg daily and celexa will be decreased to 10mg daily with a plan for alternative SSRI due to risk of QT prolongation or discontinuation if there are signs of orin. Frequently reorient patient and involve her in their care (simple explanations of procedures, tests, medications). - Lights on and shades open during daytime hours. - Write date and goals of care in a visible place. - Try to avoid unnecessary interruptions to sleep during nighttime hours. - Obtain glasses, hearing aids from home if patient uses these at baseline. - Avoid medications that may exacerbate delirium (especially narcotics, benzodiazepines, barbiturates, ambien, lunesta, and medications with excessive anticholinergic properties)
[2017-04-05] MEDS ORDERED: celeXA PO SCH (18:11)
[2017-04-05] MEDS: TYLENOL PO PRN (18:14)
[2017-04-05] MEDS ORDERED: LEVEMIR SUB-Q SCH (22:00)
[2017-04-05] MEDS: LOVENOX SUB-Q SCH (22:08)
[2017-04-06] MEDS: NOVOLOG SUB-Q SCH (08:39)
[2017-04-06] MEDS: LEVAQUIN PO SCH (09:49)
[2017-04-06] MEDS: LOPRESSOR PO SCH (09:50)
[2017-04-06] MEDS: NAMENDA PO SCH (09:52)
[2017-04-06] MEDS: NORVASC PO SCH (09:52)
[2017-04-06] MEDS: ULTRAM PO SCH (09:53)
[2017-04-06] MEDS: PEPCID PO SCH (09:53)
--- NOTE | 2017-04-06 10:48 | Progress Note ---
Subjective - Reason for Consult Consult date: 04/06/17 Reason for consult: Psychiatry Follow-up - Chief Complaint Chief complaint: "Hello" 77-year-old -Monegasque female presenting to [facility] for generalized weakness. Today patient is calm during the assessment. She was able to ID her daughter at bedside. Per her RN, no side effects of her medications and no behavioral disturbance overnight. The patient denies SI/HI's. He daughter would like a referral for outpatient psy services for her mother. Mental Status Exam - Vital signs Last Vital Signs Temp 98.0 F 04/06/17 07:28 Pulse 74 04/06/17 09:52 Resp 18 04/06/17 07:28 BP 154/69 04/06/17 09:52 Pulse Ox 97 04/06/17 07:28 - Exam Narrative exam: MSE: Appearance: calm Behavior: regular eye contact Speech: regular rate of tone Mood: "okay" Affect: congruent to mood Thought Process: circumstantial Thought Content: denies SI/HI's and AVH's Motor Activity: lying in bed, within normal limits Cognition: A/O x2 Insight: limited Judgment: limited Assessment and Plan Impression: Hx of Schizophrenia. Dementia, unspecified. Today patient is calm during the assessment. Dementia with behavioral disturbance is possible, but it is more likely her recent behavior is related to encephalopathy give the acute onset. Recommendation/Plan: Continue home medications - Depakote 250 mg PO BID, Celexa 10 mg PO daily, and Seroquel 400 mg PO HS. Patient's daughter given outpatient psy services for [facility]. Recommend the following below: - Frequently reorient patient and involve her in their care (simple explanations of procedures, tests, medications). - Lights on and shades open during daytime hours. - Write date and goals of care in a visible place. - Try to avoid unnecessary interruptions to sleep during nighttime hours. - Obtain glasses, hearing aids from home if patient uses these at baseline. - Avoid medications that may exacerbate delirium (especially narcotics, benzodiazepines, barbiturates, ambien, lunesta, and medications with excessive anticholinergic properties)
--- NOTE | 2017-04-06 11:19 | Discharge Summary ---
Providers - Providers Date of Admission: 04/02/17 20:40 Date of discharge: 04/06/17 Attending physician: GRIFFIN BLANDON MD 04/03/17 06:47 Consult to Case Management [CONS] Routine Services Needed at Discharge: Other Notified:: yes Additional Physician Instructions: Please send out for SNF placement as per family request. 04/03/17 08:28 Physical Therapy Evaluation and Treat [CONS] Routine Comment: Reason For Exam: frequent fall 04/04/17 15:45 psychiatry consult [Consult to Mental Health] [CONS] Routine Reason For Exam: behavior disorder/depokote use Place consult to:: Blas Notified:: yes Phone number called:: [phone] Was contact made?: Yes If yes, spoke with:: Blas Time called:: 16:01 Comment:: she's en route to our unit Primary care physician: DOCUMENTATION CONSULTANT Hospitalization Reason for admission: Sepsis, pneumonitis, encephalopathy Condition: Stable Pertinent studies: Chest x-ray Mild bibasilar subsegmental atelectasis. CT head - No acute intracranial process noted. CT chest 1. Bibasilar atelectasis versus fibrosis. 2. Otherwise no acute abnormality identified in the chest. 3. Granulomatous changes in the left upper lobe and mediastinum. VQ scan - Normal Hospital course: 77 YO Female with HTN, DM, OA, Dementia, Anxiety, Depression presents to ED for evaluation. Pt is confused and unable to provide history. Pt daughter was at bedside and provides history. Pt daughter states that her mother has been living with her since March 13, 2017. Since that time she has experienced progressive confusion and weakness that has resulted in multiple falls. No reports of fever, chills, CP, Palpitations, NVD, Syncope, head trauma. Pt has decreased interaction with family, as well as decreased oral intake over the past three weeks. Pt seen and evaluated in ED and found to be confused but is able to protect her airway. No external signs of trauma, or point tenderness to head and neck region on exam. CT of Head, Neck, and Chest conducted in ED did not reveal any acute fracture or pathology. D dimer was elevated, but VQ scan did not reveal PE. Pt daughter denies complaints of head/neck pain. Pt found to have evidence of sepsis and pneumonia. Patient was admitted to the floor she was treated with IV antibiotics, psych medications were adjusted, patient was getting better but the patient was still weak. I consulted psychiatry for her psych medication adjustment. PT evaluated the patient and recommended subacute rehabilitation. Patient was discharged to subacute rehabilitation. Patient's confusion could be due to her dementia versus psych medications. Patient showed improvement at the time of discharge. Patient was hemodynamically stable at the time of discharge. I have discussed the management plan with the daughter who were in agreement with the plan. Patient's medications were reviewed and updated of the time of discharge. Disposition: [id number]/[place]-03 SNF [facility] C[facility] Time spent for discharge: 31 minutes - Discharge Diagnoses (1) Encephalopathy Status: Acute (2) HTN (hypertension) Status: Chronic Qualifiers: Hypertension type: unspecified Qualified Code(s): I10 - Essential (primary ) hypertension (3) Sepsis Status: Acute Qualifiers: Sepsis type: sepsis due to unspecified organism Qualified Code(s): A41.9 - Sepsis, unspecified organism (4) Pneumonitis Status: Acute Core Measure Documentation - Palliative Care Palliative Care/ Comfort Measures: Not Applicable - Core Measures Any of the following diagnoses?: none Exam - Physical Exam Narrative exam: Not in cardiopulmonary distress. The patient appeared well nourished and normally developed. Vital signs as documented. Head exam is unremarkable. No scleral icterus . Neck is without jugular venous distension, thyromegaly, or carotid bruits. Lungs are clear to auscultation. Cardiac exam reveals regular rate and Rhythm. First and second heart sounds normal. No murmurs, rubs or gallops. Abdominal exam reveals normal bowel sounds, no masses, no organomegaly and no aortic enlargement. Extremities are nonedematous and both femoral and pedal pulses are normal. CRITICAL CARE PHYSICIAN: Patient is alert and oriented. - Constitutional Vitals: Temp Pulse Resp BP Pulse Ox 98.0 F 74 18 154/69 97 04/06/17 07:28 04/06/17 09:52 04/06/17 07:28 04/06/17 09:52 04/06/17 07:28 Plan Activity: advance as tolerated Weight Bearing Status: Weight Bear as Tolerated Diet: low salt, diabetic Follow up with: PRIMARY CARE, [Primary Care Provider] - 3-5 Days Prescriptions: Citalopram [celeXA] 10 mg PO DAILY #[address] [Depakote Dr] 250 mg PO BID #60 tablet Levofloxacin [Levaquin TAB] 750 mg PO Q24HR #7 tablet traMADol [Ultram 50 MG tab] 50 mg PO BID #30 tablet
[2017-04-06 14:13] VITALS: BP 122/51
[2017-04-06] MEDS ORDERED: celeXA PO SCH (18:00)
== END 2017-04-06 14:25 | DRG 871 ==
LOC: ED 13:17 → 2B-ACE 20:40
PROVIDERS: ADMIT Internal Medicine; ATTEND Internal Medicine
DX: A41.9 Sepsis, unspecified organism (principal); J18.9 Pneumonia, unspecified organism; G93.40 Encephalopathy, unspecified; F30.9 Manic episode, unspecified; F03.91 Unspecified dementia, unspecified severity, with behavioral disturbance; E11.9 Type 2 diabetes mellitus without complications; I10 Essential (primary) hypertension; Z79.899 Other long term (current) drug therapy; M19.90 Unspecified osteoarthritis, unspecified site; Z87.01 Personal history of pneumonia (recurrent); Z90.710 Acquired absence of both cervix and uterus; F41.9 Anxiety disorder, unspecified; Z82.49 Family history of ischemic heart disease and other diseases of the circulatory system; Z83.3 Family history of diabetes mellitus; Z88.0 Allergy status to penicillin; Z88.2 Allergy status to sulfonamides; F20.9 Schizophrenia, unspecified
CPT/HCPCS: 36415; 70450; 71010; 71250; 72125; 78582; 80048; 80053; 80164; 81001; 82140; 82550; 82553; 82962; 83615; 83880; 84484; 85025; 85379; 85610; 85730; 87040; 93005; 93010; 94760; 96361; 96374; 99285; A9540; A9558; G8978-GP; G8979-GP; J1650; J1815; J1818; J1956; J7030; J7040

== ENCOUNTER 2020-12-13 07:28 | Emergency (ER) | payer MEDICARE ==
[2020-12-13 07:36] VITALS: BP 129/65
== END 2020-12-13 08:25 | disposition left against medical advice (07) ==
LOC: ED 07:28
DX: Z00.00 Encounter for general adult medical examination without abnormal findings (principal); Z53.21 Procedure and treatment not carried out due to patient leaving prior to being seen by health care provider